=== PATIENT | male | born 1950 | race Caucasian/White ===

== ENCOUNTER → 2018-05-23 06:04 | Outpatient (CLI) | payer MEDICARE, SELFPAY ==
--- NOTE | 2018-05-23 06:08 | CA_ITS ---
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 Left atrium is mildly enlarged, left ventricle is normal size, mild concentric left ventricular hypertrophy, visually estimated ejection fraction of 50%, with moderate hypokinesis involving the inferobasal wall. 2. The right atrium and right ventricle are mildly enlarged with normal contractility. 3. The aortic valve is minimally thickened and fibrosed. 4. The mitral and tricuspid valve leaflets are minimally thickened 5. The pulmonic valve is poorly visualized. 6. No significant pericardial effusion noted. DOPPLER INTERROGATION: Doppler interrogation of the aortic, mitral and tricuspid valvular presence of mild mitral and tricuspid regurgitation, tricuspid regurgitation jet velocity is inadequate for calculation of the right ventricular systolic pressure, grade 1 diastolic dysfunction seen without tissue Doppler evidence of raised left atrial pressure. CONCLUSION: 1. Mild biatrial enlargement, normal left ventricular size, mild concentric left ventricular hypertrophy, visually estimated ejection fraction 50% with segmental wall motion abnormality described above, grade 1 diastolic dysfunction seen without tissue Doppler evidence of raised left atrial pressure. 2. Mildly enlarged right ventricle with normal contractility. 3. Thickened and calcified aortic valve without Doppler evidence of aortic stenosis aortic insufficiency. 4. Mild mitral and tricuspid regurgitation. 5. No significant pericardial effusion noted.
--- NOTE | 2018-05-23 06:08 | NM_ITS ---
History and Indications: Coronary artery disease, previous bypass surgery, diabetes, family history chest pain Procedure: Patient received a 0.4 mg of intravenous Lexiscan, resting heart rate was 78 bpm resting blood pressure 132/74, with scan maximum heart rate achieved was 99 bpm is less than 85% of the maximum predicted heart rate and blood pressure was 128/69. Lexiscan patient complained of shortness of breath Electrocardiogram: Resting electrocardiogram showed sinus rhythm nonspecific changes, with Lexiscan there is less than 1.[address] segment depression noted from the baseline EKG. The EKG portion of the Lexiscan Myoview is nondiagnostic. Cardiac stress and resting SPECT images: Cardiac stress and resting SPECT images were obtained using technetium 99 Myoview 31.2 mCi stress and 10.1 mCi at rest gated SPECT further analysis of segmental wall motion and ejection fraction also done. Cardiac stress and resting SPECT images show reversible ischemia involving the inferior and inferior apical wall. Computer derived ejection fraction 56% with no regional wall motion abnormality, right ventricle is normal size and contractility. Conclusion: 1. The EKG portion of the Lexiscan Myoview is nondiagnostic. 2. Scintigraphic evidence of mild reversible ischemia involving the inferior and inferior apical wall. There are ejection fraction is 56% with no regional wall motion abnormality, right ventricle is normal size and contractility. 3. Abnormal Lexiscan Myoview study.
--- NOTE | 2018-05-23 07:08 | HMH.ITSHM ---
Current Home Medications as stated by this patient Reid Marley or construction representative. []TELMISARTAN SITAGLIPTIN RASUVASTATIN METFORMIN GLIMEPIRIDE FOLIC ACID CARVEDILOL ASA
== END ==
PROVIDERS: PCP Internal Medicine Adolescent Medicine; Visit Provider Nurse Practitioner Family
DX: R07.9 Chest pain, unspecified (principal); E78.2 Mixed hyperlipidemia; I11.9 Hypertensive heart disease without heart failure; I25.10 Atherosclerotic heart disease of native coronary artery without angina pectoris
CPT/HCPCS: 78452; 93017; 93306; A9502; J2785

== ENCOUNTER → 2019-06-08 08:41 | Outpatient (CLI) | payer MEDICARE, SELFPAY ==
--- NOTE | 2019-06-08 08:43 | FL_ITS ---
PROCEDURE: FL BARIUM SWALLOW CLINICAL INDICATION: DYSPHAGIA COMPARISON: No exams were available for comparison TECHNIQUE: In the upright position the patient was observed to swallow barium in both the AP and lateral view. The cervical esophagus was examined under fluoroscopy with images obtained. The patient was then placed prone in the right anterior oblique position and was observed to swallow barium with Valsalva technique . FLUOROSCOPY TIME: 1 minutes and 3 seconds FINDINGS: There is mild esophageal spasm. No annular constricting lesions. There is a small hiatal hernia with a minimally constricting Schatzki's ring. On the AP view there was questionable filling defect within the left hypo pharyngeal region. This may only be due to incomplete distention. Direct visualization suggested. IMPRESSION: 1. Mild esophageal spasm with small sliding hiatal hernia and minimally constricting Schatzki's ring. 2. Lobular filling defect in the left hypo pharyngeal region possibly due to nondistention. Consider direct visualization for confirmation. Dictated by: Maverick Negron MD 06/08/2019 11:28 Electronically signed by Maverick Negron MD in [place] 06/08/2019 11:28
== END ==
PROVIDERS: PCP Internal Medicine Adolescent Medicine; Visit Provider Nurse Practitioner Family
DX: R13.10 Dysphagia, unspecified (principal)
CPT/HCPCS: 74220

== ENCOUNTER → 2019-09-12 09:24 | Outpatient (CLI) | payer MEDICARE, SELFPAY ==
[2019-09-12 08:48] VITALS: BMI 27.3
[2019-09-13 15:04] LABS: Covid-19 Nasal PCR Sendout Lex NOT DETECTED
== END ==
PROVIDERS: Visit Provider Internal Medicine Gastroenterology
DX: Z01.818 Encounter for other preprocedural examination (principal)
CPT/HCPCS: U0003

== ENCOUNTER 2019-09-14 06:56 | Day surgery (SDC) | payer MEDICARE, SELFPAY ==
--- NOTE | 2019-09-11 10:27 | SUR.PREOP ---
09/11/19 @ 1027--PHONE CALL MADE TO PATIENT. PATIENT UNDERSTANDS THAT LAB WORK AND COVID TESTING NEEDS TO BE COMPLETED @ 0900 ON 09/12/19. PATIENT UNDERSTANDS IF LAB WORK AND COVID-19 TESTS ARE NOT COMPLETED BY 12PM ON THAT DATE, THE SURGERY SCHEDULED WILL BE CANCELLED AND RESCHEDULED FOR ANOTHER TIME.
[2019-09-11 10:52] VITALS: BMI 26.3
[2019-09-14] VITALS (7 sets, daily range): BP systolic 106–131; BP diastolic 63–73; PULSE 51–77; RESP 16–18; TEMP 36.2–36.6; O2SAT 97–99
--- NOTE | 2019-09-14 08:11 | P.PCN_ITS ---
[facility] Procedure Note Procedure Note:: Upper Endoscopy Procedure Report: Esophagogastroduodenoscopy with cold biopsies and TTS balloon dilation Endoscopost: Magdi Bunn II, MD Referring Physician: RANCHO Moreno/Justyn Dukes MD/Cathryn Gentile MD Date of Procedure: September 14, 2019 Equipment: Olympus GIF 180 standard upper endoscope Sedation: MAC sedation Indications: Mr. Marley is a 68-year-old gentleman with dysphagia for the last 6 months especially to solid foods such as steak. The patient does have some intermittent heartburn and reflux. He was placed on omeprazole for 4 to 6 weeks and now takes this as needed for heartburn. The patient reports no weight loss. This is his first upper endoscopy. He did have a colonoscopy with me a couple of years ago and had 2 small colon polyps removed. Procedure: Prior to the procedure, a history and physical exam was performed, and patient's medications and allergies were reviewed. The risks, benefits and alternatives of the sedation and procedure were discussed with the patient. All questions were answered and informed consent was obtained. The patient was brought to the procedure room. Patient identification and proposed procedure were verified by the physician and the nurse. The patient was placed in a left lateral decubitus position and the scope was passed under direct vision. Throughout the procedure, the patient's blood pressure, pulse, and oxygen saturations were monitored continuously. The upper GI endoscopy was accomplished without difficulty. The patient tolerated the procedure well. Findings: The scope was passed directly into the upper esophagus and advanced to the third portion of the duodenum. The post bulbar duodenum and duodenal bulb were normal with normal mucosa and conniventes. The scope was withdrawn through a normal duodenal bulb and pylorus into the stomach. There was some bile reflux with linear reactive gastropathy of the antrum and body of the stomach. The remainder of the antrum, body and fundus of the stomach were grossly normal. Upon retroflexion there was no hiatal hernia. 2 biopsies were taken in the antrum and along the lesser curvature for histology to rule out gastritis and/or H pylori. The scope was then withdrawn into the esophagus. There was some esophageal corrugation and a distal esophageal ring. There was no evidence of Nova's esophagus or reflux esophagitis. Cold biopsies were taken from the distal and midesophagus to rule out eosinophilic esophagitis. The Schatzki's ring and esophagus were dilated from 18 to 20 mm (54-60 Arabic) with a TTS hydrostatic balloon. There was shattering of the Schatzki's ring. The remainder of the esophageal mucosa was normal. Impression: 1. Schatzki's ring dilated to 20 mm 2. Esophageal corrugation (mild)?rule out eosinophilic esophagitis 3. Moderate linear reactive gastropathy of antrum and body Plan: I will follow-up the biopsies. I would recommend omeprazole for 12 weeks for healing of the Schatzki's ring. I will discuss the findings with patient and family.
--- NOTE | 2019-09-14 08:32 | HMH.ANESCL ---
[facility] Anesthesia Checklist - Structural Data Admitted From: Home Planned Operative Procedure/s: egd Consent for Planned Operative Procedure(s) Verified: Yes - Airway Assessment C-Spine Mobility Assessed: Yes TMJ Mobility Assessed: Yes Dentition: Good Dentition - Neurological Assessment Level of Consciousness: Awake, Alert, Appropriate - Anesthesia Plan Anesthesia Risk discussed: Yes Anesthesia Plan: Verified ASA Class: II Anesthesia Type: MAC [facility] History I have reviewed the patient's past medical history: Yes Medical History: Reports:: Coronary Artery Disease, Cerebrovascular Accident, Diabetes Mellitus Type 2, Hyperlipidemia, Hypertension Denies:: Cancer, Diabetes Mellitus Type 1, Internal Pacemaker, MRSA, Seizures *Have you ever received a pneumonia vaccine?: No *Have you received a flu vaccine this season?: No Anesthesia experience/problems:: none Other Surgeries: Yes: CABG, Cardiac Catheterization, Coronary Stent, Other (Oral Sx). No: Pacemaker Amputation: No Fractures: No - *Social History Educational Level: Completed High School Smoking Status: Never smoker Alcohol Intake: never Alcohol Intake Frequency:: holidays/special occasions only Substance Use Type: denies use *Occupational Status:: employed Housing: house Household Members: spouse *Travel in the last 8 weeks: None Family Hx:: Coronary Artery Disease, Heart Attack
[2019-09-14 14:25] LABS: POC Glucose,Bedside 116 (70-110)
== END 2019-09-14 09:25 | disposition home or self-care (01) ==
LOC: OUTP 06:56
PROVIDERS: PCP Internal Medicine Adolescent Medicine; Visit Provider Internal Medicine Gastroenterology
PROC: 0DJ08ZZ Inspection of Upper Intestinal Tract, Via Natural or Artificial Opening Endoscopic (ICD-10-PCS; CPT 43235; principal; 2019-09-14 08:00)
DX: R13.10 Dysphagia, unspecified (principal); E11.9 Type 2 diabetes mellitus without complications; Z79.84 Long term (current) use of oral hypoglycemic drugs; Z79.899 Other long term (current) drug therapy; K22.2 Esophageal obstruction; K31.9 Disease of stomach and duodenum, unspecified; K21.0 Gastro-esophageal reflux disease with esophagitis
CPT/HCPCS: 43239; 43249; 82962; 88305; C1726; J2704

== ENCOUNTER → 2020-05-12 10:51 | Outpatient (CLI) | payer MEDICARE, SELFPAY ==
--- NOTE | 2020-05-12 11:05 | XR_ITS ---
PROCEDURE: XR CHEST PORTABLE CLINICAL HISTORY: COVID OUTPATIENT COMPARISON: CR CXR CHEST(2 VIEWS-NOT PORTABLE) from 06/22/2016 FINDINGS: There has been a prior CABG. Normal heart size. The lungs are clear without infiltrates, suspicious nodules, or pleural effusions. There are degenerative changes in the shoulders on both sides. IMPRESSION: No acute findings. Dictated by: Maverick Negron MD 05/12/2020 12:47 Maverick Negron MD in [place] 05/12/2020 12:47
[2020-05-12 11:42] LABS: Eosinophils % 0.5 % (0.1-12.0); Hematocrit 45.5 % (42.0-52.0); Hemoglobin 15.1 g/dL (14.1-18.0); Lymphocytes # 0.5 K/mm3 (0.7-4.5); Lymphocytes % 13.8 % (10-50); Mean Corpuscular HGB Conc 33.2 g/dL (31.8-35.4); Mean Corpuscular Hemoglobin 28.6 pg (27.0-31.2); Mean Corpuscular Volume 86.1 fl (80-94); Mean Platelet Volume 7.6 fl (7.4-10.4); Monocytes # 0.4 K/mm3 (0.1-1.0); Monocytes % 10.7 % (1.7-9.3); Neutrophils # 2.9 K/mm3 (1.8-7.8); Platelet Count 222 K/mm3 (142-424); Red Blood Count 5.29 M/mm3 (4.60-6.20); Red Cell Distribution Width 14.5 % (11.5-17.5); White Blood Count 3.9 K/mm3 (4.8-10.8)
[2020-05-12 11:55] LABS: Alanine Aminotransferase 33 U/L (12-78); Albumin Level 4.5 g/dl (3.5-5.0); Albumin/Globulin Ratio 1.7 (1.1-1.8); Alkaline Phosphatase 92 U/L (38-126); Anion Gap 14.6 mEq/L (5-15); Aspartate Amino Transferase 36 U/L (17-59); Bilirubin,Total 0.6 mg/dl (0.2-1.3); Blood Urea Nitrogen 25 mg/dl (9-20); Calcium 9.4 mg/dl (8.4-10.2); Carbon Dioxide 31 mmol/L (22.0-30.0); Chloride 91 mmol/L (98-107); Estimated Glomerular Filt Rate 50 ml/min (>60); GFR (African American) 61 ML/MIN (>60); Globulin 2.6 g/dL (1.3-3.2); Glucose 203 mg/dl (74-100); Potassium 4.6 mmoL/L (3.5-5.1); Sodium 132 mmol/L (136-145); Total Protein,Serum 7.1 g/dl (6.3-8.2)
== END ==
PROVIDERS: PCP Internal Medicine Adolescent Medicine; Visit Provider Nurse Practitioner Family
DX: U07.1 COVID-19 (principal); E11.9 Type 2 diabetes mellitus without complications; Z79.84 Long term (current) use of oral hypoglycemic drugs
CPT/HCPCS: 36415; 71045; 80053; 85025; 96365; 96367

== ENCOUNTER → 2021-03-09 07:51 | Outpatient (CLI) | payer MEDICARE, SELFPAY ==
[2021-03-09 08:22] LABS: Basophils # 0.1 K/mm3 (0-0.2); Basophils % 0.6 % (0.1-2.0); Eosinophils # 0.6 K/mm3 (0.0-0.4); Eosinophils % 7.1 % (0.1-12.0); Hematocrit 41.9 % (42.0-52.0); Hemoglobin 12.8 g/dL (14.1-18.0); Lymphocytes # 1.4 K/mm3 (0.7-4.5); Lymphocytes % 15.3 % (10-50); Mean Corpuscular HGB Conc 30.4 g/dL (31.8-35.4); Mean Corpuscular Volume 78.9 fl (80-94); Monocytes # 0.9 K/mm3 (0.1-1.0); Monocytes % 9.6 % (1.7-9.3); Neutrophils % 67.4 % (37.0-80.0); Platelet Count 265 K/mm3 (142-424); Red Blood Count 5.31 M/mm3 (4.60-6.20); Red Cell Distribution Width 15.7 % (11.5-17.5); White Blood Count 8.9 K/mm3 (4.8-10.8)
[2021-03-09 08:50] LABS: Hemoglobin A1C 7.8 % (4.0-6.0)
[2021-03-09 09:59] LABS: Alanine Aminotransferase 15 U/L (12-78); Albumin Level 3.9 g/dl (3.5-5.0); Albumin/Globulin Ratio 1.6 (1.1-1.8); Alkaline Phosphatase 94 U/L (38-126); Anion Gap 13.7 mEq/L (5-15); Aspartate Amino Transferase 22 U/L (17-59); Bilirubin,Total 0.4 mg/dl (0.2-1.3); Blood Urea Nitrogen 23 mg/dl (9-20); Calcium 9.5 mg/dl (8.4-10.2); Carbon Dioxide 27 mmol/L (22.0-30.0); Chloride 99 mmol/L (98-107); Chol/HDL Ratio 3.9 (1-3.5); Cholesterol 117 mg/dl (140-200); Estimated Glomerular Filt Rate 66 ml/min (>60); GFR (African American) 80 ML/MIN (>60); Globulin 2.4 g/dL (1.3-3.2); Glucose 152 mg/dl (74-100); HDL Cholesterol 30 mg/dl (40-60); Potassium 4.7 mmoL/L (3.5-5.1); Sodium 135 mmol/L (136-145); Total Protein,Serum 6.3 g/dl (6.3-8.2); Triglycerides 203 mg/dl (30-150); VLDL Cholesterol 41 mg/dL (0-40)
== END ==
PROVIDERS: Visit Provider Nurse Practitioner Family
DX: I25.10 Atherosclerotic heart disease of native coronary artery without angina pectoris (principal); I10 Essential (primary) hypertension; E11.9 Type 2 diabetes mellitus without complications; Z79.84 Long term (current) use of oral hypoglycemic drugs
CPT/HCPCS: 36415; 80053; 80061; 83036; 85025

== ENCOUNTER → 2021-09-03 08:25 | Outpatient (CLI) | payer MEDICARE, SELFPAY ==
[2021-09-03 09:49] LABS: Creatinine,Urine Random 52 mg/dL (Not Estab.); Hemoglobin A1C 8.6 % (4.0-6.0); Microalbumin/Creatinine Ratio 30.3
[2021-09-03 10:16] LABS: Chloride 103 mmol/L (98-107); Potassium 4.8 mmoL/L (3.5-5.1); Sodium 137 mmol/L (136-145)
[2021-09-03 10:18] LABS: Blood Urea Nitrogen 19 mg/dl (9-20); Estimated Glomerular Filt Rate 66 ml/min (>60); GFR (African American) 80 ML/MIN (>60)
[2021-09-03 10:19] LABS: Alanine Aminotransferase 19 U/L (12-78); Albumin Level 4.1 g/dl (3.5-5.0); Albumin/Globulin Ratio 2.1 (1.1-1.8); Alkaline Phosphatase 106 U/L (38-126); Anion Gap 10.8 mEq/L (5-15); Aspartate Amino Transferase 25 U/L (17-59); Bilirubin,Total 0.6 mg/dl (0.2-1.3); Carbon Dioxide 28 mmol/L (22.0-30.0); Cholesterol 129 mg/dl (140-200); Glucose 148 mg/dl (74-100); Iron 40 ug/dL (49-181); Total Protein,Serum 6.1 g/dl (6.3-8.2); Triglycerides 190 mg/dl (30-150); VLDL Cholesterol 38 mg/dL (0-40)
[2021-09-03 10:20] LABS: Chol/HDL Ratio 3.8 (1-3.5); HDL Cholesterol 34 mg/dl (40-60)
[2021-09-03 10:30] LABS: Direct LDL Cholesterol 60.65 mg/dL (100-129); Total Iron Binding Capacity 519 ug/dL (261-462)
[2021-09-03 12:43] LABS: Hematocrit 40.3 % (42.0-52.0); Hemoglobin 12.4 g/dL (14.1-18.0); Mean Corpuscular Volume 75.6 fl (80-94); Red Blood Count 5.33 M/mm3 (4.60-6.20); White Blood Count 7.8 K/mm3 (4.8-10.8)
[2021-09-03 12:44] LABS: Lymphocytes % 13.6 % (10-50); Mean Corpuscular HGB Conc 30.8 g/dL (31.8-35.4); Mean Corpuscular Hemoglobin 23.3 pg (27.0-31.2); Neutrophils % 64.6 % (37.0-80.0); Platelet Count 269 K/mm3 (142-424); Red Cell Distribution Width 16.7 % (11.5-17.5)
[2021-09-03 12:45] LABS: Basophils # 0.1 K/mm3 (0-0.2); Basophils % 0.6 % (0.1-2.0); Eosinophils # 0.6 K/mm3 (0.0-0.4); Eosinophils % 7.1 % (0.1-12.0); Lymphocytes # 1.1 K/mm3 (0.7-4.5); Monocytes # 1.1 K/mm3 (0.1-1.0)
== END ==
PROVIDERS: Visit Provider Nurse Practitioner Family
DX: I25.10 Atherosclerotic heart disease of native coronary artery without angina pectoris (principal); I10 Essential (primary) hypertension; E11.9 Type 2 diabetes mellitus without complications; D50.9 Iron deficiency anemia, unspecified; Z79.84 Long term (current) use of oral hypoglycemic drugs
CPT/HCPCS: 36415; 80053; 80061; 82043; 82570; 82728; 83036; 83540; 83550; 85025

== ENCOUNTER → 2021-09-15 12:40 | Outpatient (CLI) | payer MEDICARE, SELFPAY | PROVIDERS: PCP Nurse Practitioner Family; Visit Provider Nurse Practitioner Family | DX: Z01.812 Encounter for preprocedural laboratory examination (principal); Z11.52 Encounter for screening for COVID-19; Z12.11 Encounter for screening for malignant neoplasm of colon | CPT/HCPCS: C9803; U0003; U0005 ==

== ENCOUNTER 2021-09-17 10:51 | Day surgery (SDC) | payer MEDICARE, SELFPAY ==
[2021-09-14 15:05] VITALS: BMI 28.3
[2021-09-17] VITALS (7 sets, daily range): BP systolic 98–124; BP diastolic 67–77; PULSE 68–96; RESP 16–18; TEMP 36.3–36.7; O2SAT 95–99
--- NOTE | 2021-09-17 11:15 | HMH.ANESCL ---
[facility] Anesthesia Checklist - Patient Identification Patient Identification: Arm Band - Structural Data Admitted From: Home Planned Operative Procedure/s: Colonoscopy Consent for Planned Operative Procedure(s) Verified: Yes - NPO Status Verified Time NPO: 00:00 - Airway Assessment C-Spine Mobility Assessed: Yes TMJ Mobility Assessed: Yes Dentition: Poor Dentition - Neurological Assessment Level of Consciousness: Awake Hx Seizures: No Numbness or tingling in extremities: No - Anesthesia Plan Anesthesia Risk discussed: Yes Anesthesia Plan: Verified ASA Class: III Anesthesia Type: MAC [facility] History I have reviewed the patient's past medical history: Yes Medical History: Reports:: Coronary Artery Disease, Cerebrovascular Accident, Diabetes Mellitus Type 2, Hyperlipidemia, Hypertension, Transient Ischemic Attacks (TIA) Denies:: Cancer, Diabetes Mellitus Type 1, Internal Pacemaker, MRSA, Seizures *Have you ever received a pneumonia vaccine?: No *Have you received a flu vaccine this season?: No Anesthesia experience/problems:: None Other Surgeries: Yes: CABG, Cardiac Catheterization, Coronary Stent, Other (Oral Sx). No: Pacemaker Amputation: No Fractures: No - *Social History Last grade of school completed: Advanced degree Smoking Status: Never smoker Alcohol Intake: never Alcohol Intake Frequency:: holidays/special occasions only Substance Use Type: denies use *Occupational Status:: employed Housing: house Household Members: spouse *Travel in the last 8 weeks: None Family Hx:: Coronary Artery Disease, Heart Attack
[2021-09-17 11:21] LABS: POC Glucose,Bedside 127 (70-110)
--- NOTE | 2021-09-17 11:54 | HMH.SCOPE ---
- Procedure: Date: 09/17/21 Patient Date of :: 1950 Procedure Performed:: Screening colonoscopy Indications:: History of polyps Performing Provider:: Quirino Crawley MD Referring Provider:: Evangelina Bright APRN Sedation:: Propofol Procedure:: After placing the patient in the left lateral decubitus position, the colonoscopy was gently inserted into the rectum and under direct visualization advanced to the cecum which was identified by transillumination in the right lower quadrant, identification of the ileocecal valve, appendiceal orifice, and cecal strap. Color, texture, mucosa, and anatomy of the colon were carefully examined with the scope. Findings:: Anal canal: normal Rectum: normal Sigmoid colon: normal without polyps or inflammatory changes Descending colon: normal without polyps or inflammatory changes Splenic flexure: normal Transverse colon: normal without polyps or inflammatory changes Hepatic flexure: normal Ascending colon: normal without polyps or inflammatory changes Cecum: normal Terminal ileum: not visualized Impression: Normal colonoscopy Recommendations:: Repeat examination in about FIVE years or so in view of history of polyps Complications:: None Estimated blood obtained (mL): 0
== END 2021-09-17 12:45 | disposition home or self-care (01) ==
LOC: OUTP 10:53
PROVIDERS: PCP Internal Medicine Adolescent Medicine; Visit Provider Internal Medicine Gastroenterology
PROC: 0DJD8ZZ Inspection of Lower Intestinal Tract, Via Natural or Artificial Opening Endoscopic (ICD-10-PCS; CPT 45378; principal; 2021-09-17 12:00)
DX: Z12.11 Encounter for screening for malignant neoplasm of colon (principal); Z86.010 Personal history of colon polyps; I25.10 Atherosclerotic heart disease of native coronary artery without angina pectoris; E11.9 Type 2 diabetes mellitus without complications; E78.5 Hyperlipidemia, unspecified; I10 Essential (primary) hypertension; Z95.5 Presence of coronary angioplasty implant and graft; Z86.73 Personal history of transient ischemic attack (TIA), and cerebral infarction without residual deficits; Z82.49 Family history of ischemic heart disease and other diseases of the circulatory system; Z82.3 Family history of stroke; Z79.899 Other long term (current) drug therapy; Z79.84 Long term (current) use of oral hypoglycemic drugs
CPT/HCPCS: G0121; 82962; J2704

== ENCOUNTER 2022-02-05 06:51 | Emergency (ER) | payer MEDICARE, SELFPAY ==
[2022-02-05 07:05] VITALS: BP 136/77; PULSE 77; RESP 16; TEMP 36.8; O2SAT 100; BMI 27.8
--- NOTE | 2022-02-05 07:11 | XR_ITS ---
FINAL REPORT CLINICAL HISTORY: fall, LACERATION TO BACK OF HAND FINDINGS: 3 views of the right hand were obtained. There is no acute fracture or dislocation. Mild diffuse degenerative change. No foreign body. IMPRESSION: No acute fracture or foreign body. Reviewed, Interpreted and Dictated by Gary Cooln MD Transcribed by Bola Jovel Authenticated and [facility]
--- NOTE | 2022-02-05 07:11 | CT_ITS ---
FINAL REPORT TECHNIQUE: Noncontrast exam CLINICAL HISTORY: fall, KNOT ON FOREHEAD, FINDINGS: Encephalomalacia in the right temporal occipital lobe.. Ventricles are normal. There is no hemorrhage. No mass effect is seen. Left frontal skull soft tissue swelling. Bone windows show no evidence of fracture. IMPRESSION: No acute hemorrhage. Reviewed, Interpreted and Dictated by Gary Colon MD Transcribed by Bola Jovel Authenticated and [facility]
--- NOTE | 2022-02-05 07:11 | XR_ITS ---
FINAL REPORT CLINICAL HISTORY: fall, KNOT ON FOREHEAD, BLOODY NOSE FINDINGS: Multiple views of the facial bones were performed. There is no acute fracture. Bony alignment appears normal. The visualized sinuses are clear. IMPRESSION: No acute process. Reviewed, Interpreted and Dictated by Gary Colon MD Transcribed by Bola Jovel Authenticated and [facility]
[2022-02-05 07:45] VITALS: PULSE 71; O2SAT 99
--- NOTE | 2022-02-05 07:49 | HMH.EDFALL ---
Discharge Plan Disposition Patient Disposition: Home, Self-Care Chief Complaint: Fall Prescriptions Prescriptions: No Action folic acid 1 mg tablet 2 mg PO DAILY Label Comments: TAKE TWO TABLETS BY MOUTH EVERY DAY aspirin 81 mg tablet,delayed release (DR/EC) 81 mg PO DAILY Label Comments: TAKE 1 TABLET BY MOUTH ONCE DAILY clopidogrel 75 mg tablet 75 mg PO DAILY Label Comments: TAKE ONE TABLET BY MOUTH EVERY DAY ascorbic acid (vitamin C) 500 mg capsule 1,000 mg PO DAILY zinc 50 mg tablet 50 mg PO BID cholecalciferol (vitamin D3) 25 mcg (1,000 unit) capsule 25 mcg PO DAILY rosuvastatin [Crestor] 20 mg tablet 20 mg PO DAILY metformin 1,000 mg tablet 1,000 mg PO BID telmisartan 40 mg tablet 40 mg PO DAILY glimepiride 4 mg tablet 4 mg PO DAILY omeprazole 20 mg capsule,delayed release(DR/EC) 20 mg PO DAILY Label Comments: TAKE ONE CAPSULE BY MOUTH EVERY DAY peg 3350-electrolytes [GaviLyte-G] 236-22.74-6.74 -5.86 gram recon soln 240 ml PO Q10M Qty: 4000 0RF Rx Instructions: review attached instructions carvedilol 6.25 mg tablet See Rx Instructions .ROUTE .COMPLEX Qty: 60 5RF Dose Instruction: TAKE ONE TABLET BY MOUTH TWICE DAILY FOR HIGH BLOOD PRESSURE --TAKE WITH FOOD (MEAL/SNACK)-- Rx Instructions: TAKE ONE TABLET BY MOUTH TWICE DAILY FOR HIGH BLOOD PRESSURE --TAKE WITH FOOD (MEAL/SNACK)-- hydrochlorothiazide 12.5 mg capsule See Rx Instructions .ROUTE .COMPLEX Qty: 30 5RF Dose Instruction: TAKE ONE CAPSULE BY MOUTH EVERY DAY Rx Instructions: TAKE ONE CAPSULE BY MOUTH EVERY DAY dapagliflozin 5 MG tablet 5 mg PO DAILY zolpidem 10 MG tablet 10 mg PO NEEDED PRN (Reason: Sleep) dulaglutide 1.5 mg/0.5 mL pen injector 3 mg SQ WEEKLY Referrals Follow up/Referrals: Evangelina Bright APRN [Primary Care Provider] - See instructions Clinical Impressions Clinical Impression: Contusion of face, Contusion of hand, Laceration of nose, Fall Instructions Patient Instructions: How to Prevent Falls Discharge ED Provider: Julio C Beard Fall [facility] General Chief Complaint: Fall Stated Complaint: AO 02/05/22 0300; fell on job site Time Seen by Provider: 02/05/22 07:49 Mode of Arrival: Ambulatory Source of Information: Patient and Medical Record Limitations: No Limitations Description of Symptoms (Recalled from ER Triage Doc. by RN): per pt, at approx 0300 he tripped at work and fell, injuring his nose and right top of his hand. History of Present Illness HPI Narrative: trip fall at work but not workman comp with facial injury and rt hand injury - no loc and no neck pain - no hip pain MD complaint: fall Onset (ago): hour(s) Fall from: standing Fall witnessed: no Place fall occurred: work Loss of consciousness: none Prolonged down time: no Symptoms prior to fall: none Context: tripped/slipped Location of injury: head and face Location of injury - extremities: Right: hand Severity: moderate Associated symptoms (after fall): denies Related Data Home Medications Medication Instructions Recorded Confirmed metformin 1,000 mg tablet 1,000 mg PO BID Diabetes 11/21/17 09/14/21 rosuvastatin 20 mg tablet (Crestor) 20 mg PO DAILY Cholesterol 11/21/17 09/14/21 telmisartan 40 mg tablet 40 mg PO DAILY Cholesterol 11/21/17 09/14/21 dapagliflozin 5 mg tablet 5 mg PO DAILY Diabetes 09/11/19 09/14/21 zolpidem 10 mg tablet 10 mg PO NEEDED PRN Sleep 09/11/19 09/14/21 folic acid 1 mg tablet 2 mg PO DAILY Supplement 12/05/19 09/14/21 ascorbic acid (vitamin C) 500 mg 1,000 mg PO DAILY Supplement 06/04/20 09/14/21 capsule aspirin 81 mg tablet,delayed 81 mg PO DAILY heart health 06/04/20 09/14/21 release cholecalciferol (vitamin D3) 25 25 mcg PO DAILY Supplement 06/04/20 09/14/21 mcg (1,000 unit) capsule clopidogrel 75 mg tablet 75 mg PO DAILY CABG 06/04/20
--- NOTE | 2022-02-05 08:00 | PC.NURSE ---
SANGEETA LOOMIS ([facility] at suturing
[2022-02-05 08:39] VITALS: BP 104/68; PULSE 82; O2SAT 99
--- NOTE | 2022-02-05 08:57 | PC.NURSE ---
contacted rad to check on status of CT/xray readings, spoke with Emilio. States she is going to fax preliminaries down to ER
[2022-02-05 09:40] VITALS: BP 100/64; PULSE 67; RESP 18; O2SAT 99
[2022-02-05 09:52] VITALS: BP 100/64; PULSE 66; RESP 18; TEMP 36.8; O2SAT 99
== END 2022-02-05 09:52 | disposition home or self-care (01) ==
PROVIDERS: Emergency Provider Emergency Medicine; PCP Nurse Practitioner Family
DX: S01.21XA Laceration without foreign body of nose, initial encounter (principal); S60.221A Contusion of right hand, initial encounter; R07.9 Chest pain, unspecified; R94.31 Abnormal electrocardiogram [ECG] [EKG]; Z79.02 Long term (current) use of antithrombotics/antiplatelets; Z79.82 Long term (current) use of aspirin; Z79.84 Long term (current) use of oral hypoglycemic drugs; Z79.899 Other long term (current) drug therapy; Z23 Encounter for immunization; W01.0XXA Fall on same level from slipping, tripping and stumbling without subsequent striking against object, initial encounter; Y99.0 Civilian activity done for income or pay
CPT/HCPCS: 12011; 70150; 70450; 73130; 90471; 90715; 99285

== ENCOUNTER 2023-09-12 08:53 | Outpatient (CLI) | payer MEDICARE, SELFPAY ==
[2023-09-12 09:47] LABS: Basophils # 0.1 K/mm3 (0-0.2); Basophils % 0.5 % (0.1-2.0); Eosinophils # 0.4 K/mm3 (0.0-0.4); Eosinophils % 4.6 % (0.1-12.0); Hemoglobin 14.2 g/dL (14.1-18.0); Lymphocytes # 1.1 K/mm3 (0.7-4.5); Lymphocytes % 12.4 % (10-50); Mean Corpuscular HGB Conc 31.5 g/dL (31.8-35.4); Mean Corpuscular Hemoglobin 27.5 pg (27.0-31.2); Mean Corpuscular Volume 87.2 fl (80-94); Monocytes # 0.8 K/mm3 (0.1-1.0); Monocytes % 8.3 % (1.7-9.3); Neutrophils # 6.7 K/mm3 (1.8-7.8); Neutrophils % 74.2 % (37.0-80.0); Platelet Count 257 K/mm3 (142-424); Red Blood Count 5.16 M/mm3 (4.60-6.20); Red Cell Distribution Width 15.8 % (11.5-17.5)
[2023-09-12 10:08] LABS: Hemoglobin A1C 6.2 % (4.0-6.0)
[2023-09-12 10:13] LABS: Alanine Aminotransferase 19 U/L (12-78); Albumin Level 4.3 g/dl (3.5-5.0); Albumin/Globulin Ratio 2.2 (1.1-1.8); Alkaline Phosphatase 170 U/L (38-126); Aspartate Amino Transferase 25 U/L (17-59); Bilirubin,Total 0.8 mg/dl (0.2-1.3); Blood Urea Nitrogen 20 mg/dl (9-20); Carbon Dioxide 23 mmol/L (22.0-30.0); Chloride 105 mmol/L (98-107); Chol/HDL Ratio 2.9 (1-3.5); Cholesterol 120 mg/dl (140-200); Estimated Glomerular Filt Rate 66 ml/min (>60); GFR (African American) 80 ML/MIN (>60); Glucose 88 mg/dl (74-100); HDL Cholesterol 41 mg/dl (40-60); Sodium 136 mmol/L (136-145); Total Protein,Serum 6.3 g/dl (6.3-8.2); Triglycerides 189 mg/dl (30-150); VLDL Cholesterol 38 mg/dL (0-40)
[2023-09-12 10:24] LABS: Direct LDL Cholesterol 59.24 mg/dL (100-129)
[2023-09-12 10:44] LABS: Prostate Specific Ag Screen 1.4 ng/ml (0.0-4.0)
[2023-09-12 11:28] LABS: Folate 6.61 ng/mL
[2023-09-12 11:43] LABS: Ferritin 13.5 ng/ml (17.9-464)
== END 2023-09-12 23:59 | disposition home or self-care (01) ==
LOC: LAB 08:54
PROVIDERS: PCP Nurse Practitioner Family; Visit Provider Nurse Practitioner Family
DX: E11.9 Type 2 diabetes mellitus without complications (principal); Z12.5 Encounter for screening for malignant neoplasm of prostate; I25.10 Atherosclerotic heart disease of native coronary artery without angina pectoris; D50.9 Iron deficiency anemia, unspecified; E53.8 Deficiency of other specified B group vitamins; Z79.899 Other long term (current) drug therapy
CPT/HCPCS: 36415; 80053; 80061; 82728; 82746; 83036; 85025; G0103

== ENCOUNTER 2023-12-06 09:00 | Outpatient (CLI) | payer MEDICARE, SELFPAY ==
--- NOTE | 2023-12-06 09:06 | CA_ITS ---
APPROVED REPORT EXAM: Comprehensive 2D, Doppler, and color-flow Echocardiogram Senior Contracts Administrator: Padmaja Price CRT Ht: 6 ft 0 in Wt: 195lbs BSA: 2.11 BP: 142/77 mmHg Indications: Diabetes, CAD, Hypertension/HDD, CABG, HHD 2D Dimensions Left Atrium 3.78 cm LVEF ([facility]) 51.10 % LVOT 2.03 cm (M/F) 1.5-2.5 LV Volume 101.00 mL LA Volume 37.70 mL LA Volume Index 17.90 mL/m2 (M/F) 16-34 EF AP4 64.40 % EF AP2 32.9 % EF BP 51.1 % GL Strain -15.8 % M-Mode Dimensions RVDd 3.39 cm (0.9-2.6) LVDd 4.20 cm (3.5-5.7) Ao Diam 4.44 cm (2.0-3.7) LVDs 2.85 cm (3.5-5.7) IVSd 2.08 cm (0.6-1.1) PWd 0.27 cm (0.6-1.1) EF (Teich) 60.70% FS 32.10% EDV (Teich) 78.60 mL TAPSE 1.43 (<1.7) ESV (Teich) 30.90 mL LV Diastology MED E' 5.7 (>= 7 cm/sec) MED A' 9.40 cm/s LAT E' 8.6 (>= 10 cm/sec) LAT A' 16.30 cm/s Aortic Valve LVOT Max 128.0 (70-110 cm/s) VANITA Index 1.37 cm2/m2 LVOT VTI 29.84 cm AoV Peak [place]. 187.0 (50-130 cm/s) AO Peak GR. 11.30 mmHg AO Mean GR. 7.20 (<5 mmHg) AO VTI 33.4 (18-25 cm) VANITA (VTI) 2.89 (2.5-4.5 cm2) Tricuspid Valve TR P. Velocity 171.00 cm/s RAP Estimate 10.00 mmHg RVSP 21.70 mmHg Left Ventricle The left ventricle is normal size. The left ventricular systolic function is normal. The left ventricular ejection fraction is within the normal range. Proximal septal thickening is noted. There is normal LV segmental wall motion. The left ventricular diastolic function is normal. LVEF is 60%. Right Ventricle The right ventricle is normal size. The right ventricular systolic function is normal. Atria The left atrium size is normal. The right atrium size is normal. There is no Doppler evidence of interatrial shunt. Aortic Valve The aortic valve opens well. There is no aortic valvular stenosis. No aortic regurgitation is present. Mitral Valve The mitral valve is normal in structure. No evidence of mitral valve stenosis. There is no mitral valve regurgitation noted. Tricuspid Valve The tricuspid valve leaflets are thin and pliable. Trace tricuspid regurgitation. There is insufficient TR jet to estimate RVSP. Pulmonic Valve The pulmonary valve is normal in structure. Trace pulmonic regurgitation. Great Vessels The aortic root is normal in size. The ascending aorta is normal in size. IVC is normal in size and collapses >50% with inspiration. Pericardium There is no pericardial effusion. Other Information Study Quality: Adequate Conclusion Normal biventricular systolic function. No significant valvular stenosis or regurgitation. Electronically signed by : Tess Hannon MD 12/06/2023 12:19:35
== END 2023-12-06 23:59 | disposition home or self-care (01) ==
LOC: RT 09:01
PROVIDERS: PCP Nurse Practitioner Family; Visit Provider Physician Assistant
DX: Z95.1 Presence of aortocoronary bypass graft (principal); I11.9 Hypertensive heart disease without heart failure; I25.10 Atherosclerotic heart disease of native coronary artery without angina pectoris; E11.9 Type 2 diabetes mellitus without complications; E78.2 Mixed hyperlipidemia; Z79.4 Long term (current) use of insulin
CPT/HCPCS: 93306

== ENCOUNTER 2024-04-09 07:44 | Outpatient (CLI) | payer MEDICARE, SELFPAY ==
--- NOTE | 2024-04-09 07:56 | US_ITS ---
FINAL REPORT CLINICAL HISTORY: ABDOMINAL BRUIT COMPARISON: None FINDINGS: Sonographic images were obtained of the abdominal aorta. The abdominal aorta measures up to 2.5 in greatest dimensions. The common iliac arteries are within normal limits. IMPRESSION: No evidence of aortic aneurysm. Reviewed, Interpreted and Dictated by Chintan Kelley III, MD Transcribed by Xochitl Linder Authenticated and [facility]
== END 2024-04-09 23:59 | disposition home or self-care (01) ==
LOC: RAD 07:46
PROVIDERS: PCP Nurse Practitioner Family; Visit Provider Nurse Practitioner Family
DX: R09.89 Other specified symptoms and signs involving the circulatory and respiratory systems (principal)
CPT/HCPCS: 76705

== ENCOUNTER 2024-10-04 09:55 | Outpatient (CLI) | payer MEDICARE, SELFPAY ==
--- NOTE | 2024-10-04 10:00 | CT_ITS ---
FINAL REPORT TECHNIQUE: After the administration of oral and intravenous contrast, axial images were obtained through the abdomen and pelvis by computed tomography. The study was performed with techniques to keep radiation dose as low as reasonably achievable, (ALARA). Individual dose reduction techniques using automated exposure control or adjustment of mA and/or kV according to the patient's size were employed. CLINICAL HISTORY: HEMATURIA, PROTEINURIA COMPARISON: 01/13/2019 FINDINGS: Abdomen: The lung bases are clear. There is mild fatty infiltration of the liver. Calcified gallstone is seen in the dependent portion of the gallbladder. The spleen, pancreas, and adrenal's are unremarkable. There is a 2.5 cm low-attenuation focus in the left kidney with a mean attenuation value of 27 Hounsfield units. Finding is best seen on image 48 of series 2. The aorta is normal in caliber. There is no free fluid or adenopathy. Pelvis: The appendix is normal. There is a large amount of stool throughout the colon. The urinary bladder is unremarkable. There is no free fluid or adenopathy. There is mild hip joint space narrowing bilaterally with hypertrophic changes at the acetabular margins consistent with osteoarthritis. IMPRESSION: Gallstones in the dependent portion of the gallbladder. Unusual lobular 2.5 cm mass in the left kidney. Pre and post infused exam is recommended to fully characterize. Reviewed, Interpreted and Dictated by Jordin Foreman MD Transcribed by Daniella Griffiths Authenticated and [facility]
[2024-10-04] MEDS: SODIUM CHLORIDE 0.9% 10ML SYR (RAD ONLY) 10 ML IV (10:36)
[2024-10-04] MEDS: IOPAMIDOL-370 (76%);100ML BOTTLE 75 ML IV (10:36)
== END 2024-10-04 23:59 | disposition home or self-care (01) ==
LOC: RAD 09:57
PROVIDERS: PCP Nurse Practitioner Family; Visit Provider Nurse Practitioner Family
DX: K80.20 Calculus of gallbladder without cholecystitis without obstruction (principal); N28.89 Other specified disorders of kidney and ureter; R80.9 Proteinuria, unspecified; R31.9 Hematuria, unspecified
CPT/HCPCS: 74177; Q9967

== ENCOUNTER 2024-10-24 09:02 | Outpatient (CLI) | payer MEDICARE, SELFPAY ==
--- OUTSIDE RECORDS SUMMARY | 2024-09-14 00:10 | XMS_ITS | Continuity of Care Document ---
Author Organization [facility] Phone Care Team Providers Care Java User Interface Developer Name Role Phone CASTILLO SILVA Primary Care CASTILLO SILVA Admitting CASTILLO SILVA Primary Attending CASTILLO SILVA Unavailable RESULTS Patient: MAYRA Osorio Date of : 1950 5 LABORATORY RESULTS ORDER 100: LIPID PANEL (LOIN C: 79476-1) ORDER DATE: September 12, 2024 4:08:00 PM [place] Specimen Source: Serum/Plasm a Specimen Type: Acellular blo od (serum or plasma) specimen PERFORMING LAB: [address] [id number] Result Comment: Final Result Date: September 12, 2024 4:54:00 PM UT (TECH: LT) LOINC TEST FLAG RESULT REFERENCE RANGE UPDA INDU BY 2571-8 Triglyceride [Mass/volume] in Serum or Plasma N 98 mg/dL 20 mg/dL - 200 mg/dL September 12, 2024 4:54:00 PM UT (TECH: LT) 2093-3 Cholesterol [Mass/volume] in Serum or Plasma N 94 mg/dL 0 mg/dL - 200 mg/dL September 12, 2024 4:54:00 PM UT (TECH: LT) 2085-9 Cholesterol in HDL [Mass/volume] in Serum or Plasma L 41 mg/dL 60 mg/dL September 12, 2024 4:54:00 PM [place] (TECH: LT) 47399-8 Cholesterol in LDL [Mass/volume] in Serum or Plasma by calculation L 33 mg/dL 100 mg/dL September 12, 2024 4:54:00 PM UT (TECH: LT) 2095-8 Cholesterol in HDL/Cholesterol.tota l [Mass Ratio] in Serum or Plasma N 2 - 5 September 12, 2024 4:54:00 PM UTC (TECH: LT) ORDER 200: PROSTATE SPECIFIC AG PSA (LOINC: 2857-1) ORDER DATE: September 12, 2024 4:08:00 PM UTC Specimen Source: Serum/Plasm a Specimen Type: Acellular blo od (serum or plasma) specimen PERFORMING LAB: [address] [id number] Result Comment: Final Result Date: September 12, 2024 4:55:00 PM UTC (TECH: LT) LOINC TEST FLAG RESULT REFERENCE RANGE UPDA INDU BY 2857-1 Prostate specific Ag [Mass/volume] in Serum or Plasma N 1.50 ng/mL 0.0 ng/mL - 4.0 ng/mL September 12, 2024 4:55:00 PM UTC (TECH: LT) ORDER 400: COMP METABOLIC PA SARY (LOINC: 03751-7) ORDER DATE: September 12, 2024 4:08:00 PM UTC Specimen Source: Serum/Plasm a Specimen Type: Acellular blo od (serum or plasma) specimen PERFORMING LAB: [address] [id number] Result Comment: Final Result Date: September 12, 2024 4:55:00 PM UTC (TECH: LT) LOINC TEST FLAG RESULT REFERENCE RANGE UPDA INDU BY 2951-2 Sodium [Moles/volume ] in Serum or Plasma N 138 mmol/L 136 mmol/L - 145 mmol/L September 12, 2024 4:55:00 PM UTC (TECH: LT) 2823-3 Potassium [Moles/volume] in Serum or Plasma N 4.4 mmol/L 3.5 mmol/L - 5.1 mmol/L September 12, 2024 4:55:00 PM UTC (TECH: LT) 2075-0 Chloride [Moles/volu me] in Serum or Plasma N 103 mmol/L 98 mmol/L - 107 mmol/L September 12, 2024 4:55:00 PM UTC (TECH: LT) 2027-9 Carbon dioxide, tota l [Moles/volume] in Serum or Plasma N 24 mmol/L 21 mmol/L - 32 mmol/L September 12, 2024 4:55:00 PM UTC (TECH: LT) 11184-6 Anion gap 3 in Serum or Plasma N 11.0 September 12, 2024 4:55:00 PM UTC (TECH: LT) 2345-7 Glucose [Mass/volume ] in Serum or Plasma N 75 mg/dL 70 mg/dL - 110 mg/dL September 12, 2024 4:55:00 PM UTC (TECH: LT) 3094-0 Urea nitrogen [Mass/volume] in Serum or Plasma N 16 mg/dL 7 mg/dL - 18 mg/dL September 12, 2024 4:55:00 PM UT (TECH: LT) 2160-0 Creatinine [Mass/volume] in Serum or Plasma N 1.3 mg/dL 0.8 mg/dL - 1.3 mg/dL September 12, 2024 4:55:00 PM UT (TECH: LT) 3097-3 Urea nitrogen/Creatinine [Mass Ratio] in Serum or Plasma N 12.3 9 - September 12, 2024 4:55:00 PM UT (TECH: LT) 52110-1 Glomerular filtratio n rate/1.73 sq M.predicted by Creatinine-based formula (MDRD) L 58 mL/min >60 September 12, 2024 4:55:00 PM UT (TECH: LT) 94091-9 Osmolality of Serum or Plasma by calculated by sum of electrolytes N 287 mosm/kg 275 mosm/kg - 301 mosm/kg September 12, 2024 4:55:00 PM UT (TECH: LT) 2885-2 Protein [Mass/volume ] in Serum or Plasma N 6.7 g/dL 6.4 g/dL - 8.2 g/dL September 12, 2024 4:55:00 PM UT (TECH: LT) 1751-7 Albumin [Mass/volume ] in Serum or Plasma N 4.1 g/dL 3.4 g/dL - 5.0 g/dL September 12, 2024 4:55:00 PM UT (TECH: LT) 40958-3 Calcium [Mass/volume ] in Serum or Plasma N 9.8 mg/dL 8.5 mg/dL - 10.1 mg/dL September 12, 2024 4:55:00 PM UT (TECH: LT) 61686-9 Calcium [Mass/volume ] corrected for total protein in Serum or Plasma N 9.7 mg/dL 8.5 mg/dL - 10.1 mg/dL September 12, 2024 4:55:00 PM UTC (TECH: LT) 1975-2 Bilirubin.total [Mass/volume] in Serum or Plasma N 0.7 mg/dL 0.4 mg/dL - 1.5 mg/dL September 12, 2024 4:55:00 PM UTC (TECH: LT) 1920-8 Aspartate aminotransferase [Enzymatic activity/volume] in Serum or Plasma N 21 U/L 15 U/L - 37 U/L September 12, 2024 4:55:00 PM UTC (TECH: LT) 1742-6 Alanine aminotransferase [Enzymatic activity/volume] in Serum or Plasma N 16 U/L 12 U/L - 78 U/L September 12, 2024 4:55:00 PM UTC (TECH: LT) 6768-6 Alkaline phosphatase [Enzymatic activity/volume] in Serum or Plasma N 152 U/L September 12, 2024 4:55:00 PM UT (TECH: LT) ORDER 600: CBC AUTO W DIFF ( LOINC: 57354-6) ORDER DATE: September 12, 2024 5:06:00 PM UT Specimen Source: Whole Blood Specimen Type: Whole blood s ample PERFORMING LAB: [address] [id number] Result Comment: Final Result Date: September 12, 2024 5:10:00 PM UT (TECH: LT) LOINC TEST FLAG RESULT REFERENCE RANGE UPDA INDU BY 6690-2 Leukocytes [#/volume] in Blood by Automated count N 7.3 10^3/uL 4.5 10^3/uL - 11.5 10^3/uL September 12, 2024 5:10:00 PM UT (TECH: LT) 789-8 Erythrocytes [#/volume] in Blood by Automated count N 5.22 10^6/uL 4.25 10^6/uL - 5.57 10^6/uL September 12, 2024 5:10:00 PM UT (TECH: LT) 718-7 Hemoglobin [Mass/volume] in Blood N 14.7 g/dL 13.5 g/dL - 17.2 g/dL September 12, 2024 5:10:00 PM UTC (TECH: LT) 24385-9 Hematocrit [Volume Fraction] of Blood N 45.3 % 42.0 % - 52.0 % September 12, 2024 5:10:00 PM UTC (TECH: LT) 787-2 Erythrocyte mean corpuscular volume [Entitic volume] by Automated count N 86.8 fl 80 fl - 95 fl September 12, 2024 5:10:00 PM UTC (TECH: LT) 36503-7 Erythrocyte mean corpuscular hemoglobin [Entitic mass] in Blood from [place] by Automated count N 28.2 pg 27.0 pg - 34.0 pg September 12, 2024 5:10:00 PM UTC (TECH: LT) 58984-4 Erythrocyte mean corpuscular hemoglobin concentration [Mass/volume] in Blood from Fetus by Automated count N 32.5 g/dL 32.0 g/dL - 36.0 g/dL September 12, 2024 5:10:00 PM UTC (TECH: LT) 71189-6 Platelets [#/volume] in Blood N 210 10^3/uL 150 10^3/uL - 450 10^3/uL September 12, 2024 5:10:00 PM UTC (TECH: LT) 52865-1 Erythrocyte distribution width [Ratio] N 14.9 % 12.3 % - 15.1 % September 12, 2024 5:10:00 PM UTC (TECH: LT) 43252-6 Platelet mean volume [Entitic volume] in Blood by Automated count N 9.4 fl 7.4 fl - 10.4 fl September 12, 2024 5:10:00 PM UTC (TECH: LT) 62338-8 Granulocytes/100 leukocytes in Blood by Automated count N 73.7 % 40 % - 75 % September 12, 2024 5:10:00 PM UTC (TECH: LT) 736-9 Lymphocytes/100 leukocytes in Blood by Automated count L 12.3 % 15 % - 57 % September 12, 2024 5:10:00 PM UTC (TECH: LT) 5905-5 Monocytes/100 leukocytes in Blood by Automated count N 10.3 % 4.0 % - 12.0 % September 12, 2024 5:10:00 PM UTC (TECH: LT) 713-8 Eosinophils/100 leukocytes in Blood by Automated count N 3.2 % 0.0 % - 4.0 % September 12, 2024 5:10:00 PM UTC (TECH: LT) 706-2 Basophils/100 leukocytes in Blood by Automated count N 0.4 % 0.0 % - 1.0 % September 12, 2024 5:10:00 PM UTC (TECH: LT) 23171-6 Immature granulocytes [#/volume] in Blood N 0.1 % 0.0 % - 0.8 % September 12, 2024 5:10:00 PM UTC (TECH: LT) 97892-3 Granulocytes [#/volume] in Blood by Automated count N 5.37 10^3/uL September 12, 2024 5:10:00 PM UTC (TECH: LT) 731-0 Lymphocytes [#/volume] in Blood by Automated count N 0.90 10^3/uL September 12, 2024 5:10:00 PM UTC (TECH: LT) 742-7 Monocytes [#/volume] in Blood by Automated count N 0.75 10^3/uL September 12, 2024 5:10:00 PM UTC (TECH: LT) 711-2 Eosinophils [#/volume] in Blood by Automated count N 0.23 10^3/uL September 12, 2024 5:10:00 PM UTC (TECH: LT) 704-7 Basophils [#/volume] in Blood by Automated count N 0.03 10^3/uL September 12, 2024 5:10:00 PM UTC (TECH: LT) 55548-1 Immature granulocytes [#/volume] in Blood N 0.01 10^3/uL September 12, 2024 5:10:00 PM UTC (TECH: LT) 19974-2 Manual differential performed [Presence] in Blood N NO September 12, 2024 5:10:00 PM UTC (TECH: LT) ORDER 700: HEMOGLOBIN A1C (L OINC: 4548-4) ORDER DATE: September 12, 2024 5:06:00 PM UTC Specimen Source: Whole Blood Specimen Type: Whole blood s ample PERFORMING LAB: [address] [id number] Result Comment: Final Result Date: September 12, 2024 5:42:00 PM UTC (TECH: HC) LOINC TEST FLAG RESULT REFERENCE RANGE UPDA INDU BY 4548-4 Hemoglobin A1c/Hemoglobin.total in Blood H 6.3 % 4.5 % - 6.2 % September 12, 2024 5:42 :00 PM [facility] (TECH: HC) 14620-2 Glucose mean value [Mass/volume] in Blood Estimated from glycated hemoglobin H 134 mg/dl 82 mg/dl - 131 mg/dl September 12, 2024 5:42:00 PM [facility] (TECH: HC) LABORATORY NARRATIVE RESULTS Information is not available RADIOLOGY RESULTS Information is not available PATHOLOGY NARRATIVE RESULTS Information is not available MICROBIOLOGY RESULTS No Micro Labs/Results Exist for Patient BLOOD ADMIN RESULTS Information is not available MEDICATIONS HOME MEDICATIONS Status RXNORM NDC Medication Dose Route Frequency Dates Comments Reported By Updated By Drug Treatment Unknown DISCHARGE MEDICATIONS Status RXNORM NDC Medication Dose Route Frequency Dates Comments Physician Updated By No Discharge Medication Info rmation Available INPATIENT MEDICATIONS Status RXNORM NDC Medication Dose Route Frequency Rat e Quantity Dates Comments Physician Updated By No Inpatient Medication Info rmation Available SOCIAL HISTORY SOCIAL HISTORY SNOMED-CT Social History Element Description Effective Dates Offered Cessation Comment UpdatedBy [id number] Smoking Status Unknown If Ever Smoked SOCIAL HISTORY - Gender Sex: Male SOCIAL HISTORY - Status : status i nformation is not available Intention in Next Year: intention information is not available SOCIAL HISTORY - Sexual Behavior Sexual Orientation Gender Identity SNOMED-CT Description SNO MED -CT Description Activity Level No of Partners Partner Type UpdatedBy Information is not available HEALTH CONCERNS Problems Concern Status Health Concern problem infor mation not available. Smoking Status Status Years Used Consumed packs p er day Health Concern smoking histo ry information not available. Family History Concern Status Health Concern family histor y information not available. ENCOUNTERS ENCOUNTER INFORMATION Reason for Visit E11.29 Admission September 12, 2024 3:55:[address] [id number] Discharge September 12, 2024 3:55:00 PM [facility] DISCH ARGED TO HOME OR SELF CARE ENCOUNTER DIAGNOSES Notes information is not radha ilable. Code System Diagnosis Onset Date Diagnosis information is not available. 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 [id number] on September 14, 2024 4:09:52 AM [place] D50.9 ICD10 IRON DEFICIENCY ANEMIA, UNSP ECIFIED [id number] on September 14, 2024 4:09:52 AM [facility] CARE TEAM Care Java User Interface Developer Role CASTILLO SILVA Primary Care CASTILLO SILVA Admitting CASTILLO SILVA Primary Attending CASTILLO SILVA Referring CARE TEAM 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 Role on Team Status Start Date End Date Update d By RICARDO Edmond APRN PCP normal September 12, 2024 4:00:00 AM [facility] September 12, 2024 3:55:00 PM [facility] [id number] on September 12, 2024 3:57:42 PM [facility] RICARDO Edmond APRN Referring normal September 12, 2024 4:00:00 AM [facility] September 12, 2024 3:55:00 PM [facility] [id number] on September 12, 2024 3:57:42 PM [facility] RICARDO Edmond APRN Attending normal September 12, 2024 4:00:00 AM [facility] September 12, 2024 3:55:00 PM [facility] [id number] on September 12, 2024 3:57:42 PM [facility] RICARDO Edmond APRN Admitting normal September 12, 2024 4:00:00 AM [facility] September 12, 2024 3:55:00 PM [place] [id number] on September 12, 2024 3:57:42 PM [facility]
--- NOTE | 2024-10-24 09:20 | US_ITS ---
FINAL REPORT TECHNIQUE: Ultrasound images of the kidneys and bladder were obtained. CLINICAL HISTORY: lt kidney neoplasm -- abn ct FINDINGS: The right kidney measures 11.4 cm in length. It is normal in echogenicity. There is no hydronephrosis. The left kidney measures 12.2 cm in length. It is normal in echogenicity. There is no hydronephrosis. There is a 3.6 x 2.6 cm heterogeneous focus in the mid left kidney which corresponds to abnormality seen on the CT, cannot exclude a complex mass. There is fatty infiltration of the liver. IMPRESSION: Possible complex mass in the left kidney. Reviewed, Interpreted and Dictated by Jordin Foreman MD Transcribed by Daniella Griffiths Authenticated and . [facility]
--- NOTE | 2024-10-24 09:21 | CT_ITS ---
FINAL REPORT TECHNIQUE: Pre-and postcontrast axial CT images of the abdomen and pelvis were obtained. Coronal reformatted images were also obtained and reviewed. This study was performed with techniques to keep radiation doses as low as reasonably achievable (ALARA). Individualized dose reduction techniques using automated exposure control or adjustment of mA and/or kV according to the patient's size were employed. CLINICAL HISTORY: NEOPLASM LT KIDNEY/ ABNORMAL CT COMPARISON: 10/04/2024 FINDINGS: Again seen is a lobular lesion in the mid left kidney measuring 2.5 cm in AP dimension and up to 3 cm in transverse dimension. This demonstrates a mean attenuation value of 22 Hounsfield units on pre infusion images, 30 Hounsfield units on post infusion images, and 25 Hounsfield units on delay images. This most likely represents a complex cyst. Scarring is noted at the lung bases. There is mild fatty infiltration of the liver. Gallstone is seen in the gallbladder. The spleen, pancreas, and adrenal glands are unremarkable. The appendix is not identified. The urinary bladder is unremarkable. IMPRESSION: Lobular lesion mid left kidney likely represents a complex cyst. Follow-up in 1 year recommended to confirm stability. Reviewed, Interpreted and Dictated by Jordin Foreman MD Transcribed by Katja Barnes Authenticated and [facility]
[2024-10-24 09:28] LABS: Blood Urea Nitrogen 18 mg/dl (9-20); Estimated Glomerular Filt Rate 66 ml/min (>60); GFR (African American) 80 ML/MIN (>60)
[2024-10-24] MEDS: SODIUM CHLORIDE 0.9% 10ML SYR (RAD ONLY) 10 ML IV (10:02)
[2024-10-24] MEDS: IOPAMIDOL-370 (76%);100ML BOTTLE 75 ML IV (10:02)
== END 2024-10-24 23:59 | disposition home or self-care (01) ==
LOC: RAD 09:04
PROVIDERS: PCP Nurse Practitioner Family; Visit Provider Internal Medicine Adolescent Medicine
DX: N28.9 Disorder of kidney and ureter, unspecified (principal); R93.422 Abnormal radiologic findings on diagnostic imaging of left kidney; D49.512 Neoplasm of unspecified behavior of left kidney; R93.89 Abnormal findings on diagnostic imaging of other specified body structures
CPT/HCPCS: 36415; 74178; 76770; 82565; 84520; Q9967